=== PATIENT | female | born 1980 | race Hispanic/Latino ===

== ENCOUNTER 2022-02-26 05:30 | Observation (INO) | payer OTHER ==
[2022-02-21 11:55] LABS: BASOPHILS % (AUTO) 0.2 % (0.0-5.0); EOSINOPHILS % (AUTO) 0.7 % (0.0-8.0); LYMPHOCYTES % (AUTO) 13.7 % (21.0-51.0); MEAN CORPUSCULAR HEMOGLOBIN 25.6 pg (27.0-33.0); MEAN CORPUSCULAR HGB CONC 30.9 g/dL (32.0-36.0); MEAN CORPUSCULAR VOLUME 82.9 fL (79-99); MONOCYTES % (AUTO) 6.4 % (3.0-13.0); NEUTROPHILS % (AUTO) 78.7 % (40.0-77.0); PLATELET COUNT (AUTO) 458 K/uL (130-400); RED CELL DISTRIBUTION WIDTH 14.3 % (11.0-15.5); WHITE BLOOD COUNT (AUTO) 9.2 K/uL (4.8-10.8)
[2022-02-21 12:14] LABS: APPEARANCE,URINE CLEAR (CLEAR); BILIRUBIN,URINE NEGATIVE (NEGATIVE); COLOR,URINE YELLOW (YELLOW); GLUCOSE, URINE (UA) NEGATIVE (NEGATIVE); KETONES,URINE NEGATIVE (NEGATIVE); LEUKOCYTE ESTERASE ,URINE NEGATIVE Leu/uL (NEGATIVE); NITRATE,URINE NEGATIVE (NEGATIVE); OCCULT BLOOD,URINE SMALL (NEGATIVE); PH,URINE 5.5 (5.0-8.0); PROTEIN,URINE 30 mg/dL (NEGATIVE); UROBILINOGEN,URINE 0.2 mg/dL (0.2-1.0)
[2022-02-21 12:21] LABS: BACTERIA,URINE FEW /HPF (None Seen); MUCUS,URINE MOD LPF (None Seen); OTHER CASTS, URINE 1 /LPF (None Seen); SQUAMOUS EPITHELIAL CELL,UR MOD /HPF (0-2)
[2022-02-25 11:37] VITALS: BP 128/78
[2022-02-26] VITALS (25 sets, daily range): BP systolic 127–153; BP diastolic 75–97
[~2022-02-26] VITALS: Ht 160 cm; Wt 67.6 kg
[~2022-02-26 05:30] MED LIST: ERGO500093 PO; [UNRECOGNIZED DRUG - CODE] PO; iron PO
[2022-02-26] MEDS ORDERED: LACTATED RINGERS 1000ML 1,000 ML IV ONE (06:26)
[2022-02-26] MEDS: CEFAZOLIN SODIUM 2 GM VIAL ONE ×2 (06:34→08:22)
[2022-02-26] MEDS ORDERED: MIDAZOLAM HCL 1 MG/ML 2ML VIAL ONE (08:17)
[2022-02-26] MEDS ORDERED: ROCURONIUM 10MG/1ML SYR 10 MG/ML ML ONE ×2 (08:21→09:33)
[2022-02-26] MEDS ORDERED: ONDANSETRON 4MG INJ ONE ×3 (08:21→11:20)
[2022-02-26] MEDS ORDERED: FENTANYL CITRATE PF 50 MCG/1 ML 5ML AMP IV ONE (08:21)
[2022-02-26] MEDS ORDERED: PROPOFOL 10 MG/ML 20ML VIAL IV ONE (08:21)
[2022-02-26] MEDS ORDERED: PHENYLEPHRINE HCL 10 MG/ML 1ML VIAL IV ONE (08:50)
[2022-02-26] MEDS ORDERED: KETOROLAC 30MG VIAL (30MG/ML) ONE (10:29)
[2022-02-26] MEDS ORDERED: GLYCOPYRROLATE 1 MG/5 ML SYRINGE ONE (10:49)
[2022-02-26] MEDS ORDERED: NEOSTIGMINE 5MG/5ML SYR IV ONE (10:49)
[2022-02-26] MEDS ORDERED: FENTANYL CITRATE PF 50 MCG/1 ML 2ML VIAL ONE (10:50)
[2022-02-26] MEDS ORDERED: MEPERIDINE-PF 25 MG/ML SYG ONE ×3 (10:53→12:10)
[2022-02-26] MEDS ORDERED: ONDANSETRON 4MG INJ IVP PRN (13:00)
[2022-02-26] MEDS ORDERED: IBUPROFEN 600 MG TABLET PO PRN (13:00)
[2022-02-26] MEDS ORDERED: BISACODYL 10 MG SUPP.RECT RC PRN (13:00)
[2022-02-26] MEDS ORDERED: ACETAMINOPHEN WITH CODEINE 1 TAB TAB PO PRN (13:00)
[2022-02-26] MEDS ORDERED: PROMETHAZINE HCL 25 MG/ML 1ML AMPULE IM PRN (13:00)
[2022-02-26] MEDS: MEPERIDINE-PF 75 MG/ML SYG IM PRN ×2 (13:01→22:39)
[2022-02-26] MEDS: PROMETHAZINE HCL 25 MG/ML 1ML AMPULE IM PRN ×2 (13:01→22:39)
[2022-02-26] MEDS: DEXTROSE 5 %-0.45 % NACL 1,000 ML IV PRN (18:30)
[2022-02-26] MEDS: SIMETHICONE 80 MG TAB.CHEW PO PRN (20:39)
[2022-02-26] MEDS: DOCUSATE SODIUM 100 MG CAP PO PRN (20:39)
[2022-02-27 04:14] VITALS: BP 143/82
[2022-02-27] MEDS: PROMETHAZINE HCL 25 MG/ML 1ML AMPULE IM PRN (04:26)
[2022-02-27] MEDS: DEXTROSE 5 %-0.45 % NACL 1,000 ML IV PRN (04:26)
[2022-02-27] MEDS: MEPERIDINE-PF 75 MG/ML SYG IM PRN (04:28)
[2022-02-27] MEDS ORDERED: HYDROCODONE/ACETAMINOPHEN 5/325 MG TAB PO PRN (05:30)
[2022-02-27] MEDS ORDERED: ACETAMINOPHEN WITH CODEINE 1 TAB TAB PO PRN (05:30)
[2022-02-27] MEDS ORDERED: IBUPROFEN 800 MG TAB PO PRN (05:30)
[2022-02-27 06:34] LABS: HEMATOCRIT 26.8 % (36-48); MEAN CORPUSCULAR HEMOGLOBIN 25.4 pg (27.0-33.0); MEAN CORPUSCULAR HGB CONC 31.7 g/dL (32.0-36.0); MEAN CORPUSCULAR VOLUME 80.2 fL (79-99); RED BLOOD CELL COUNT(AUTO) 3.34 MIL/uL (4.00-5.50); RED CELL DISTRIBUTION WIDTH 14.3 % (11.0-15.5); WHITE BLOOD COUNT (AUTO) 12.7 K/uL (4.8-10.8)
[2022-02-27 07:52] VITALS: BP 141/90
[2022-02-27] MEDS: SIMETHICONE 80 MG TAB.CHEW PO PRN (08:59)
[2022-02-27] MEDS: DOCUSATE SODIUM 100 MG CAP PO PRN (08:59)
[2022-02-27 12:00] VITALS: BP 135/88
== END 2022-02-27 13:10 | disposition home or self-care (01) ==
LOC: DAH 05:30 → WSH 05:31 → DAH 05:31
PROVIDERS: ADMIT Obstetrics & Gynecology; ATTEND Obstetrics & Gynecology
DX: N92.1 Excessive and frequent menstruation with irregular cycle (principal); Z20.822 Contact with and (suspected) exposure to COVID-19; D25.9 Leiomyoma of uterus, unspecified; N94.6 Dysmenorrhea, unspecified; N73.6 Female pelvic peritoneal adhesions (postinfective); N81.5 Vaginal enterocele; D64.9 Anemia, unspecified; Z90.710 Acquired absence of both cervix and uterus; Z98.51 Tubal ligation status; Z79.899 Other long term (current) drug therapy; Z98.890 Other specified postprocedural states
CPT/HCPCS: 84703 ×2; 85025; 86850 ×2; 86900 ×2; 86901 ×2; 87426; 81001; 36415 ×3; 58552; 57268; 96372 ×2; 85027; G0378 ×27; G0379; A4663; J7030; J7120 ×2; A4344; A4215 ×2; J3010 ×2; J3490; J2710; J2550 ×3; J2250; J2704; J2405 ×3; J2175 ×6; J2370; J0690; A4649 ×4; C1769 ×2; A4223; A4222; A4221; A4510; J1885

== ENCOUNTER → 2025-01-27 | Outpatient (CLI) | payer SELFPAY | END | disposition home or self-care (01) | LOC: RAH 08:56 | PROVIDERS: ATTEND Internal Medicine | DX: Z12.31 Encounter for screening mammogram for malignant neoplasm of breast (principal) | CPT/HCPCS: 77063; 77067 ==